=== PATIENT | male | born 1970 | race Caucasian/White ===

== ENCOUNTER 2018-12-15 09:54 | Emergency (ER) | payer SELFPAY, OTHER ==
[2018-12-15] MEDS: IBUPROFEN 800 MG TAB PO (10:34)
== END 2018-12-15 12:15 | disposition home or self-care (01) ==
LOC: FTE 09:54
DX: S92.532A Displaced fracture of distal phalanx of left lesser toe(s), initial encounter for closed fracture (principal); W20.8XXA Other cause of strike by thrown, projected or falling object, initial encounter; Y92.9 Unspecified place or not applicable
CPT/HCPCS: 73660; 99283-25